=== PATIENT | female | born 1970 | race Caucasian/White ===

== ENCOUNTER 2019-01-25 23:38 | Emergency (ER) | payer SELFPAY ==
[~2019-01-25] VITALS: Ht 152.4 cm; Wt 60.8 kg
[2019-01-25 23:46] VITALS: Ht 152.4 cm; Wt 60.8 kg
[2019-01-26 03:00] VITALS: BP 122/82
== END 2019-01-26 02:55 | disposition home or self-care (01) ==
LOC: ED 23:38
DX: G44.209 Tension-type headache, unspecified, not intractable (principal); R11.0 Nausea; Z98.890 Other specified postprocedural states
CPT/HCPCS: J1885